=== PATIENT | male | born 1945 | race Caucasian/White ===

== ENCOUNTER 2016-06-10 12:35 | Day surgery (SDC) | payer OTHER ==
[~2016-06-10 12:35] MED LIST: ATOR40TA49 PO; HYDR-3535 PO
[2016-06-10 13:38] VITALS: BP 161/79; PULSE 74; RESP 18; TEMP 97.9; O2SAT 99
[2016-06-10 14:25] VITALS: BP 188/89; PULSE 67; RESP 20; TEMP 98.8; O2SAT 96
[2016-06-10 14:26] VITALS: BP 174/71; PULSE 66; RESP 16; TEMP 97.9; O2SAT 96
[2016-06-10] MEDS ORDERED: LIDOCAINE HCL 1% PF 30 ML VIAL ONE (14:29)
[2016-06-10] MEDS ORDERED: SODIUM BICARBONATE 8.4% INJ 50 ML ONE (14:29)
[2016-06-10 14:40] VITALS: BP 180/91; PULSE 65; RESP 20; O2SAT 96
--- NOTE | 2016-06-10 15:27 | RADRPT ---
EXAM DATE/TIME: 06/10/2016 13:34 [place] COMPARISON: No previous studies available for comparison. INDICATIONS : Right neck mass. MEDICAL HISTORY : Hypercholesterolemia. SURGICAL HISTORY : Tonsillectomy. ENCOUNTER: Initial ACUITY: 1 day PAIN SCORE: 0/10 LOCATION: Right neck ORGAN: Right neck SPECIMENS: Three core specimen(s) submitted for pathologic evaluation. DEVICE: 18 gauge Bio Pince needle Post procedure scanning reveals no hematoma or other complication. The possibility does exist that the tissue obtained will be non-diagnostic. If the sample is non-adeel gnostic a repeat biopsy or surgical biopsy may need to be performed. TECHNIQUE: 1. Ultrasound guidance for needle biopsy. 2. Needle biopsy. The risks, benefits, and alternatives to ultrasound guided needle biopsy were explained to the patien t in detail including the risk of bleeding and infection. Written and verbal informed consent was ob tained. With the patient on the ultrasound table, images were obtained. Overlying skin was prepped and drape d in the usual sterile fashion and Lidocaine was utilized as a local anesthetic. Under direct ultrasound guidance 318 gauge cores were obtained of the periparotid adenopathy. The patient tolerated the procedure well and left the ultrasound suite in stable condition. CONCLUSION: Uncomplicated ultrasound guided needle biopsy left neck adenopathy. Material was submitted for flow and pathology. Derrick Granda MD FACR on June 10, 2016 at 15:23 Board Certified Radiologist. This report was verified electronically.
--- NOTE | 2016-06-10 15:30 | RADRPT ---
EXAM DATE/TIME: 06/10/2016 13:34 [facility] COMPARISON: No previous studies available for comparison. INDICATIONS : Left neck mass. MEDICAL HISTORY : Hypercholesterolemia. SURGICAL HISTORY : Tonsillectomy. ENCOUNTER: Initial ACUITY: 1 day PAIN SCORE: 0/10 LOCATION: Left neck ORGAN: Left neck SPECIMENS: Two core specimen(s) submitted for pathologic evaluation. DEVICE: 18 gauge Bio Pince needle Post procedure scanning reveals no hematoma or other complication. The possibility does exist that the tissue obtained will be non-diagnostic. If the sample is non-adeel gnostic a repeat biopsy or surgical biopsy may need to be performed. TECHNIQUE: 1. Ultrasound guidance for needle biopsy. 2. Needle biopsy. The risks, benefits, and alternatives to ultrasound guided needle biopsy were explained to the patien t in detail including the risk of bleeding and infection. Written and verbal informed consent was ob tained. With the patient on the ultrasound table, images were obtained. Overlying skin was prepped and drape d in the usual sterile fashion and Lidocaine was utilized as a local anesthetic. Under ultrasound guidance 2,18 gauge cores were obtained of what looks like it project at the lymph n ode. Material was submitted for pathology and flow. The patient tolerated the procedure well and left the ultrasound suite in stable condition. CONCLUSION: Uncomplicated ultrasound guided needle biopsy of the right intraparotid lymph node. Derrick Granda MD FACR on June 10, 2016 at 15:26 Board Certified Radiologist. This report was verified electronically.
== END 2016-06-10 14:25 | disposition home or self-care (01) ==
LOC: HRAD 12:35 → HRIP 12:36 → HRAD 14:25
PROVIDERS: ATTEND Otolaryngology Otolaryngology/Facial Plastic Surgery
DX: R22.1 Localized swelling, mass and lump, neck (principal); E78.00 Pure hypercholesterolemia, unspecified
CPT/HCPCS: 38505; 76942; 88305; 88333

== ENCOUNTER 2017-06-10 06:23 | Day surgery (SDC) | payer MEDICARE, OTHER ==
[~2017-06-10] VITALS: Ht 177.8 cm; Wt 88.6 kg
[2017-06-10] MEDS ORDERED: IOHEXOL 350 MG/ML 100 ML BTL (for Cath Lab) OTHER ONE (06:24)
[2017-06-10] MEDS ORDERED: SODIUM CHLOR 0.9% 1000 ML INJ 1,000 ML IV SCH (06:45)
[2017-06-10 07:20] VITALS: BP 162/97; PULSE 68; RESP 18; TEMP 98.3; O2SAT 97
[2017-06-10] MEDS ORDERED: LOSA50TA PO (07:28)
[2017-06-10] MEDS ORDERED: VARE1PAK3 PO (07:28)
[2017-06-10] MEDS ORDERED: CHOL10008 PO (07:28)
[2017-06-10] MEDS ORDERED: VITATAB43 PO (07:28)
[2017-06-10] MEDS ORDERED: ATOR20TA15 PO (07:28)
[2017-06-10] MEDS ORDERED: VENTAER INH (07:28)
[2017-06-10] MEDS ORDERED: HEPARIN-NS/PF FLUSH BAG 2,000 ML IV FLUSH ONE (08:38)
[2017-06-10] MEDS ORDERED: MIDAZOLAM HCL 2 MG/2 ML VIAL ONE (08:39)
[2017-06-10] MEDS ORDERED: HEPARIN SODIUM - IV 10,000 UNITS/10 ML VIAL ONE (09:32)
[2017-06-10] MEDS ORDERED: CLOPIDOGREL 300 MG TAB ONE (10:07)
[2017-06-10] MEDS ORDERED: hydrALAZINE HCL 20 MG/ML VIAL ONE (10:07)
[2017-06-10] MEDS ORDERED: PLAV75TA29 PO (10:23)
--- NOTE | 2017-06-10 10:29 | CATHPROC ---
[employer] HIS Report Study Information Study Number Admission Scheduled Start Study Start [id number] Jun 10 2017 6:23AM 06/10/2017 Jun 10 2017 8:27AM [place] Service Cath Endovascular Study Admit Source Facility Department Other [facility] - Office Manager Executive Assistant Physician and Clinical Staff Initial Sloan Reyna Nutrient Management Specialist Edwar Ozuna,GANGA Recorder Eneida Mota,RT(R) (BS) Scrub Misael Burch,RT(R) Procedures Performed Procedure Location (Site) Vessel Name Abdominal Angiogram Abd Aorta (A3) Aorta Periph stent Iliac L. Com. (L4) Illiac Art. INSURANCE COMPLIANCE ANALYST Iliac L. Com. (L4) Illiac Art. Wire insertion Fem Art (left) Femoral Art Wire insertion Fem Art (right) Femoral Art Equipment Time Property Disposal Officer Description Size Mfg Part Number Used/Scraped INTRODUCER SET, [id number] 09:24 [employer]OOK [employer]. FR 5 Used MICROPUNCTURE *[id number] INTRODUCER SET, 09:22 [employer]OOK [employer]. FR 5 [id number] *[id number] Used MICROPUNCTURE, STIFFENED [id number] 09:24 COOK/LEIGH CHECK-AUDREY VALVE Used *[id number] 532-523 08:53 CORDIS/ LEIGH RIM SUPER TORQUE CATHETER FR 5 Used *[id number] 09:29 CORDIS/ LEIGH SHEATH, FR6 BRITE TIP 11CM FR 6 11CM [id number] Used ENDOVASCULAR CATHETER, FR5 TRAILBLAZER [id number] 09:32 90CM Used COMPANY .035 *[id number] BALLOON, ADMIRAL EXTREME 7 X [id number] 09:46 [employer] 80CM Used 80 80CM *[id number] STENT, 8 X 60 ASSURANT 09:54 [employer] 80CM [id number] Used COBALT 80CM 08:35 MALLINCKRODT SYRINGE, ANGIOMAT 150ML 150ML [id number] Used [id number] 08:35 MEDLINE INDUSTRIES PACK, CCL CUSTOM * Used *[id number] 08:35 MEDLINE PACER PEN, SKIN DUAL W/ RULER * Used *[id number] PIG ANG 145 DXTERITY 08:53 MEDTRONIC FR 5 [id number] Used CATHETER [id number] 09:34 [employer] Solutions 30 JOYA INDEFLATOR Used *[id number] 08:35 [employer] WIRE, EXCHANGE 260CM 3MMJ 260CM Used *[id number] 08:35 NAMIC MANIFOLD, 4 PORT * Used *[id number] 08:35 NAMIC TUBING, HIGH PRESSURE 48" 48" Used *1698518 [id number] 08:53 NAMIC TUBING, HIGH PRESSURE 48" 48" Used *[id number] 08:35 NYCOMED OMNIPAQUE, 300 MG, 150ML 150ML [id number] Used 08:52 NYCOMED OMNIPAQUE, 300 MG, 50ML 50ML [id number] Used [id number] 08:35 [place] MEDICAL BLANKET,WARM AIR CCL * Used *[id number] [id number] 08:35 TERUMO MEDICAL SHEATH, FR5 TERUMO (10CM) FR 5 Used *[id number] 09:23 TERUMO MEDICAL SHEATH, FR5 TERUMO (10CM) FR 5 Used *[id number] WIRE, ANGLE GLIDE STIFF .035 [id number] 08:35 TERUMO MEDICAL/LEIGH 260CM Used 260CM *[id number] WIRE, ANGLED GLIDE .035 [id number] 09:45 TERUMO MEDICAL/LEIGH 260CM Used 260CM *[id number] Equipment Model, Serial, Lot Number and Expiration Data Description Model Number Serial Number Lot Number Expiration Date CATHETER, FR5 TRAILBLAZER .035 [id number] 04-27-2020 CHECK-AUDREY VALVE [id number] 12-26-2019 INTRODUCER SET, [id number] 04-28-2020 MICROPUNCTURE, STIFFENED PIG ANG 145 DXTERITY CATHETER [id number] 02-04-2019 STENT, 8 X 60 ASSURANT COBALT [id number] 06-25-2017 80CM History: Allergies Allergy Reaction No Known Allergies Labs Hgb (g/dl) Hct (%) WBC (l/cumm) Platelets (thousands) 11.60-17.00 35.00-51.00 4.00-11.00 150.00-450.00 15.9 47 10.6 200 Glucose (mg/dl) BUN (mg/dl) Creatinine (mg/dl) BUN:Creatinine (1:x) 74.00-106.00 7.00-18.00 0.50-1.30 10.00-20.00 101 20 1.1 18.2 Na (meq/l) K (meq/l) 136.00-145.00 3.50-5.10 142 4.5 INR (PTT:PT) 0.90-1.10 1 CPK-MB (ng/ML) 0.50-3.60 Not Drawn Medication Medication Total Dose (Bolus/Oral) Medication Total Dosage/Unit 1% XYLOCAINE 20 mL FENTANYL 100 mcg HEPARIN 5000 units HYDRALAZINE 20 mg PLAVIX 600 mg VERSED 2 mg Medications (Bolus/Oral) Medication Time Given Dosage/Unit Administered By Reason FENTANYL 06/10/2017 9:08:40 AM 50 mcg Edwar Ozuna 50 mcg FENTANYL given in lab by Edwar Ozuna RN in Left Antecubital via Peripheral IV. Ordered by Sloan Leon. VERSED 06/10/2017 9:08:46 AM 2 mg Edwar Ozuna 2 mg VERSED given in lab by Edwar Ozuna RN in Left Antecubital via Peripheral IV. Ordered by Sloan Daily. 1% XYLOCAINE 06/10/2017 9:13:14 AM 10 mL Sloan Leon 10 mL 1% XYLOCAINE given in lab by Sloan Leon in Right Groin via Subcutaneous. Ordered by Sloan Leon. 1% XYLOCAINE 06/10/2017 9:22:38 AM 10 mL Sloan Leon 10 mL 1% XYLOCAINE given in lab by Sloan Leon in Left Groin via Subcutaneous. Ordered by Margot Leon. HEPARIN 06/10/2017 9:33:47 AM 5000 units Edwar Ozuna 5000 units HEPARIN given in lab by Edwar Ozuna RN in Left Antecubital via Peripheral IV. Ordered by Sloan Leon. HYDRALAZINE 06/10/2017 10:08:21 AM 20 mg Edwar Ozuna 20 mg HYDRALAZINE given in lab by Edwar Ozuna RN in Left Antecubital via Peripheral IV. Ordered b Sloan Schmid. FENTANYL 06/10/2017 10:16:44 AM 50 mcg Edwar Ozuna 50 mcg FENTANYL given in lab by Edwar Ozuna RN in Left Antecubital via Peripheral IV. Ordered by Sloan Leon. PLAVIX 06/10/2017 10:16:53 AM 600 mg Edwar Ozuna 600 mg PLAVIX given in lab by Edwar Ozuna, RN via Oral. Ordered by Sloan Leon. Medication (Drip) Medication Time Given Dosage/Unit Concentration/Unit Diluent (ml) Solutio n IV Solutions 06/10/2017 8:31:54 AM 0 mL (IV) 500 NaCl .9 IV Solutions given in lab by Edwar Ozuna, RN in Left Antecubital via Peripheral IV. Pump/Drip Flow = 30 ml/hr using NaCl .9. Initial Case Assessment Cardiovascular HR NIBP 69 176/93 Edema Present Skin color Skin None Normal Warm Dry Circulatory - Right Pulses Femoral 1 Scale (0,1,2,3,4,d) Circulatory - Left Pulses Femoral 1 Scale (0,1,2,3,4,d) Circulatory - Lower Extremities Color Lower Right Color Lower Left Normal Normal Neurological State Oriented to time-place- Alert Moves all extremities person Respiration - General Respiration Rate SpO2 (%) (B/min) 16 99 Final Case Assessment Cardiovascular HR Rhythm NIBP 88 sr 160/84 Edema Present Skin color Skin None Normal Warm Dry Circulatory - Right Pulses Femoral 1 Scale (0,1,2,3,4,d) Circulatory - Left Pulses Femoral 1 Scale (0,1,2,3,4,d) Circulatory - Lower Extremities Color Lower Right Color Lower Left Normal Normal Neurological State Oriented to time-place- Alert Moves all extremities person Respiration - General Respiration Rate SpO2 (%) O2 (lpm) (B/min) 25 99 2 Chronological Log Time Study Chronological Log 8:26:45 Patient arrived via Bed. 8:26:47 Patient Name, D.O.B, / Armband Verified By R.N. 8:26:48 Consent signed by the physician and the patient and verified by the Office Manager Executive Assistant staff. 8:31:41 Pre-op and post- op instructions given; patient acknowledges understanding of instructions. 8:31:42 Verbal Stimulation=2 Physical Stimulation=2 Airway=2 Respiration=2 TOTAL=8. (0=absent, 1=li mited, 2=present) 8:31:44 Presedation assessment performed by Office Manager Executive Assistant RN. 8:31:48 Patient has been NPO for More than 6Hrs. 8:31:50 Patient Warmer Placed on the Table. 8:31:52 Odalys Prominences Protected 8:31:53 A # 20 IV was noted in the Antecubital (left). Grade = 0 IV Solutions given in lab by Edwar Ozuna RN in Left Antecubital via Peripheral IV. Pump/Dri p Flow = 30 ml/hr using 8:31:54 NaCl .9. 8:31:55 History and physical on the chart or being dictated. Assessment: Initial Case, HR=69 BPM, RSXY=026/93 mmhg, Edema=None, Color=Normal, Skin = Warm, Dr y Right Pulses: Femoral=1 Left Pulses: Stefano Ped=1, Post Tib=d, Femoral=1 8:31:56 Lower Right Extremities: Color=Normal Lower Left Extremities: Color=Normal Neurological: State=Alert, Ox3, [place] Respiration: Resp=16 B/min, SpO2=99 % Vitals capture started with the following parameters, Patient=Adult, Interval=5 min, Initial Pre djdfs=176 mmHg, 8:35:45 Deflation Rate=5 mmHg, Cuff placed on Right Ankle 8:36:58 HR=65 bpm, CYTW=306/93 mmhg, SpO2=98.0 %, Resp=13 B/min, Pain=0, Nika=10, Johnston=2 8:41:26 HR=69 bpm, PHNF=031/89 mmhg, SpO2=98.0 %, Resp=18 B/min 8:45:05 Bilateral groins prepped with 2% chlorhexidine, and draped after a 3 minute waiting time. 8:46:27 CUMK=304/90 mmhg, SpO2=99.0 %, Pain=0, Nika=10, Johnston=2 8:47:50 MD paged 8:50:20 Pressure channel 1 zeroed. 8:51:30 HR=70 bpm, BZKC=654/85 mmhg, PkF7=004.0 %, Resp=23 B/min, Pain=0, Nika=10, Johnston=2 8:55:32 MD responded 8:56:29 HR=71 bpm, KYQB=980/89 mmhg, SpO2=99.0 %, Resp=23 B/min, Pain=0, Nika=10, Johnston=2 9:01:30 HR=70 bpm, FJGB=478/86 mmhg, SpO2=99.0 %, Resp=20 B/min, Pain=0, Nika=10, Johnston=2 9:06:31 HR=68 bpm, AKEO=201/74 mmhg, SpO2=96.0 %, Resp=23 B/min, Pain=0, Nika=10, Johnston=2 9:07:41 MD arrived. 9:08:39 Reference ECG taken 9:08:40 50 mcg FENTANYL given in lab by Edwar Ozuna, RN in Left Antecubital via Peripheral IV. Or dered by Sloan Leon. 9:08:46 2 mg VERSED given in lab by Edwar Ozuna, RN in Left Antecubital via Peripheral IV. Ordere d by Sloan Leon. 9:11:24 HR=68 bpm, NDJD=613/78 mmhg, SpO2=96.0 %, Resp=20 B/min, Pain=0, Nika=9, Johnston=2 Time Out. Correct patient, correct procedure, correct physician, power injector loaded loaded wi th contrast with surgical 9:12:54 team present. Time Out Concurred by MD and individual staff in procedure. 9:12:57 Case Start 9:13:14 10 mL 1% XYLOCAINE given in lab by Sloan Leon in Right Groin via Subcutaneous. Ordered b y Sloan Leon. 9:17:00 HR=72 bpm, VPHI=132/87 mmhg, SpO2=97.0 %, Resp=16 B/min, Pain=0, Nika=9, Johnston=2 9:17:50 Access site was Right Femoral Artery. 9:18:06 A SHEATH, FR5 TERUMO (10CM) FR 5 was advanced into the Fem Art (right) using the Percutaneou s technique. A PIG ANG 145 DXTERITY CATHETER FR 5 was advanced over a wire. OMNIPAQUE, 300 MG, 150ML 150ML wa s used 9:19:26 for injections. 9:21:27 Through a PIG ANG 145 DXTERITY CATHETER FR 5, The Abdominal Aorta was injected with 12 cc's of contrast. 9:21:28 HR=68 bpm, PEPC=008/81 mmhg, SpO2=96.0 %, Resp=26 B/min, Pain=0, Nika=9, Johnston=2 9:22:38 10 mL 1% XYLOCAINE given in lab by Sloan Leon in Left Groin via Subcutaneous. Ordered by Sloan Leon. 9:24:13 Access site was Left Femoral Artery. A INTRODUCER SET, MICROPUNCTURE, STIFFENED FR 5 was advanced into the Fem Art (left) using the P ercutaneous 9:24:22 technique. 9:26:04 Through a micropuncture, The Iliac L. Com. (L4) was injected with 10 cc's of contrast. 9:27:06 Through a catheter, The Femoral Run-off was injected with manual injections, continuing down the extremity. 9:27:08 HR=71 bpm, KIWK=547/82 mmhg, SpO2=97.0 %, Resp=25 B/min, Pain=0, Nika=9, Johnston=2 A SHEATH, FR6 BRITE TIP 11CM FR 6 11CM was exchanged in the Fem Art (right). This was necessary in order to 9:29:14 accomodate a larger catheter. 9:31:31 HR=71 bpm, WEGI=278/82 mmhg, SpO2=97.0 %, Resp=25 B/min, Pain=0, Nika=9, Johnston=2 A PIG ANG 145 DXTERITY CATHETER FR 5 was advanced over a wire. OMNIPAQUE, 300 MG, 150ML 150ML w as used 9:32:29 for injections. 9:33:47 5000 units HEPARIN given in lab by Edwar Ozuna RN in Left Antecubital via Peripheral IV. Ordered by Sloan Leon. 9:36:32 HR=68 bpm, DJSB=196/76 mmhg, SpO2=97.0 %, Resp=23 B/min, Pain=0, Nika=9, Johnston=2 Recorded Pressure: Ao, HR=73, Condition=Condition 1 9:37:11 (Aorta) Ao 155/71/108 9:38:14 Through a RIM SUPER TORQUE CATHETER FR 5, The Iliac L. Com. (L4) was injected with 10 cc's o f contrast. A CATHETER, FR5 TRAILBLAZER .035 90CM was advanced over a wire. OMNIPAQUE, 300 MG, 150ML 150ML was used 9:40:09 for injections. 9:41:05 A WIRE, ANGLE GLIDE STIFF .035 260CM 260CM was inserted via Fem Art (left). 9:41:29 HR=72 bpm, AQWA=981/84 mmhg, SpO2=98.0 %, Resp=26 B/min, Pain=0, Nika=9, Johnston=2 9:46:08 Activated Clotting Time Drawn 9:46:56 HR=69 bpm, TPGR=942/88 mmhg, SpO2=98.0 %, Resp=24 B/min, Pain=0, Nika=9, Johnston=2 A BALLOON, ADMIRAL EXTREME 7 X 80 80CM 80CM was inserted over WIRE, ANGLE GLIDE STIFF .035 260C M 260CM 9:47:20 via the Fem Art (left). 9:48:20 In the Iliac L. Com. (L4) a BALLOON, ADMIRAL EXTREME 7 X 80 80CM 80CM was inflated to 6 atms for 30 seconds. 9:49:53 Balloon Removed. 9:50:49 ACT (Normal Range 90-180) = 233 9:51:31 HR=71 bpm, KSTR=102/90 mmhg, SpO2=98.0 %, Resp=25 B/min, Pain=0, Nika=10, Johnston=2 A STENT, 8 X 60 ASSURANT COBALT 80CM 80CM was advanced over a WIRE, ANGLE GLIDE STIFF .035 260C M 9:54:25 260CM. 9:56:34 HR=69 bpm, MWKK=710/89 mmhg, SpO2=98.0 %, Resp=23 B/min, Pain=0, Nika=9, Johnston=2 A STENT, 8 X 60 ASSURANT COBALT 80CM 80CM was deployed at 8 atmospheres for 14 seconds in the I liac L. Com. 9:57:57 (L4). 9:58:57 Delivery device removed A CATHETER, FR5 TRAILBLAZER .035 90CM was advanced over a wire. OMNIPAQUE, 300 MG, 150ML 150ML was used 10:00:29 for injections. 10:01:20 Through a PIG ANG 145 DXTERITY CATHETER FR 5, The Abdominal Aorta was injected with 10 cc's of contrast. 10:01:31 HR=75 bpm, DQZJ=928/101 mmhg, SpO2=99.0 %, Resp=23 B/min, Pain=0, Nika=9, Johnston=2 10:03:53 [place] Wire removed from left fem artery 10:05:38 Through a PIG ANG 145 DXTERITY CATHETER FR 5, The Abdominal Aorta was injected with 10 cc's of contrast. 10:06:17 A WIRE, ANGLE GLIDE STIFF .035 260CM 260CM was inserted via Fem Art (right). 10:06:36 HR=77 bpm, EXAO=420/92 mmhg, SpO2=98.0 %, Resp=22 B/min, Pain=0, Nika=9, Johnston=2 10:06:48 Catheters were removed A CATHETER, FR5 TRAILBLAZER .035 90CM was advanced over a wire. OMNIPAQUE, 300 MG, 150ML 150ML was used 10:07:11 for injections. Recorded Pressure: RIlcA, HR=77, Condition=Condition 1 10:08:17 (Right Iliac Artery) RIlcA 177/74/114 10:08:21 20 mg HYDRALAZINE given in lab by Edwar Ozuna, GANGA in Left Antecubital via Peripheral IV. Ordered by Sloan Leon. 10:10:25 Through a sheath, The Femoral Run-off was manually injected with multiple injections down t he extremity 10:11:37 HR=76 bpm, DURS=439/84 mmhg, SpO2=99.0 %, Resp=24 B/min, Pain=0, Nika=9, Johnston=2 10:12:58 Catheter(s) removed without difficulty 10:13:15 Case End 10:16:34 HR=81 bpm, LPBN=836/84 mmhg, DtM3=451.0 %, Resp=10 B/min, Pain=0, Nika=10, Johnston=2 10:16:44 50 mcg FENTANYL given in lab by Edwar Ozuna, GANGA in Left Antecubital via Peripheral IV. O rdered by Sloan Leon. 10:16:53 600 mg PLAVIX given in lab by Edwar Ozuna, GANGA via Oral. Ordered by Sloan Leon. Assessment: Final Case, HR=88 BPM, Rhythm=sr, HWOV=366/84 mmhg, Edema=None, Color=Normal, Skin = Warm, Dry Right Pulses: Femoral=1 Left Pulses: Stefano Ped=1, Post Tib=d, Femoral=1 10:19:12 Lower Right Extremities: Color=Normal Lower Left Extremities: Color=Normal Neurological: State=Alert, Ox3, [place] Respiration: Resp=25 B/min, SpO2=99 %, O2=2 lpm 10:20:29 Sheath(s) left in place, will be removed in Holding Area 10:20:32 In the Fem Art (left) the SHEATH, FR6 BRITE TIP 11CM FR 6 11CM was sutured in place by Sloan Mahan. 10:20:44 In the Fem Art (right) the SHEATH, FR5 TERUMO (10CM) FR [address] by Margot Leon. 10:21:02 Sterile dressing applied to site 10:21:03 No case complications noted. 10:21:04 Cine recording checked. 10:21:06 Bedside Report will be given. 10:21:12 Implantable Device card placed in patient's chart. 10:22:16 HR=92 bpm, ZXDH=987/93 mmhg, SpO2=99.0 %, Resp=22 B/min, Pain=0, Nika=10, Johnston=2 10:26:07 Vitals capture stopped. 10:29:30 Patient moved to [facility] End Study - Contrast Media Used In Study Contrast Total Opened (mL) Total Used (mL) Total Wasted (mL) Omnipaque 200 200 0 End Study - Maximum Contrast Load Max Contrast Load (mL) 402.7 End Study - Radiation Exposure Fluoro Time (minutes) 12.7 End Study - Patient Disposition Complications Transferred To Interventional Outcome No Office Manager Executive Assistant Holding successful
[2017-06-10] MEDS ORDERED: MISC INFORMATION XX ONE (10:30)
[2017-06-10] MEDS ORDERED: ATROPINE SULFATE 1 MG/ML VIAL IV PUSH PRN (10:30)
[2017-06-10] MEDS ORDERED: LORazepam 2 MG/ML VIAL IV PUSH PRN (10:30)
[2017-06-10] MEDS ORDERED: ONDANSETRON HCL 4 MG/2 ML VIAL IV PUSH PRN (10:30)
[2017-06-10] MEDS ORDERED: BACITRACIN OINT 0.9 GM PKT TOP ONE (10:30)
[2017-06-10] MEDS ORDERED: SODIUM CHLOR 0.9% 250 ML INJ 250 ML IV PRN (10:30)
[2017-06-10] MEDS ORDERED: LIDOCAINE HCL 1% 30 ML VIAL INFIL PRN (10:30)
[2017-06-10] MEDS ORDERED: METOCLOPRAMIDE HCL 10 MG/2 ML VIAL IV PUSH PRN (10:30)
--- NOTE | 2017-06-10 11:09 | MA ---
cc: Sloan Leon MD 06/10/2017 Peripheral angiography with intervention. PROCEDURE PERFORMED: 1. Fluoroscopy with interpretation. 2. Descending aortography. 3. Bilateral lower extremity peripheral angiography with first, second, third order visualization and interpretation. 4. Endovascular stenting with balloon expandable stent of the chronically occluded left common iliac artery. METHOD: The risks, benefits, alternatives discussed with the patient. The patient understood, consented to the procedure. The patient was brought into the catheterization lab, placed on the catheterization table. The right groin was prepped and draped in sterile fashion. Right groin was anesthetized with 2% lidocaine. Right common femoral artery was cannulated, and a 5-Burkinan 11 cm sheath was placed without difficulty. DESCENDING AORTOGRAPHY: Descending aortography was performed in anterior and posterior views using a 24 mL contrast injection with good opacification. Descending aortography revealed mild to moderate infrarenal descending aortic atherosclerosis and calcification. Bilateral renal arteries widely patent. PERIPHERAL ANGIOGRAPHY: 1. Right common iliac artery has a 50% stenosis with a 20 to 30 mm translesional gradient. Right internal and external common iliac arteries widely patent. Right common femoral, profunda, superficial femoral artery and popliteal arteries are widely patent. There is mild infrapopliteal disease in the right, but very slow flow and more moderate disease in small vessel distally. Anterior tibial, posterior tibial and peroneal vessels are patent. 2. Left common iliac artery is occluded. Left internal and external iliac arteries have mild luminal irregularities. Left common femoral, profunda, superficial femoral, popliteal arteries widely patent. Left anterior tibial, posterior tibial and peroneal vessels are patent with small vessel distal moderate disease. PERCUTANEOUS INTERVENTION: Micropuncture sheath was accessed in the left common femoral artery, and a 6-Burkinan bright tip 11 cm sheath was placed without difficulty. A 90 cm Trailblazer catheter was advanced behind a stiff angle glidewire through the chronic occlusion into the descending aorta. Digital subtraction angiography did confirm that we were in true lumen of the aorta. The stiff angle 300 cm glidewire was advanced through thoracic aorta. A 7.0 x 60 mm Medtronic balloon was then deployed in the left common iliac artery. Repeat angiography showed now AMANDA 3 flow, still residual stenosis. An 8.0 x 60 mm Medtronic balloon expandable stent was then deployed in the left common iliac artery, right at the level of the bifurcation, but not crossing into the aorta. The stent extended down just to the bifurcation of the internal and external iliac arteries. Repeat angiography showed no residual stenosis AMANDA 3 flow. There is some eccentric calcium along the distal aorta, but non flow limiting. Heparin was administered throughout the entire procedure to maintain appropriate anticoagulation. CONCLUSIONS: 1. Chronically occluded left common iliac artery. 2. Small vessel distal infrapopliteal disease bilaterally. 3. Six vessel endovascular stenting with balloon expandable stent in the common left iliac artery. PLAN: The patient will be monitored closely for any postprocedural complications. Hopefully, we will be able to discharge him later today. Fully anticipate he will have good symptomatic relief in the left lower extremity. There is borderline stenosis in the right common iliac artery with tortuosity. He was not complaining of right lower extremity claudication. Now that his left leg is revascularized, he may be limited by his right lower extremity, but we will see how he does clinically. If we need to, we can potentially bring him back for planned intervention, but if he is not symptomatic, we will manage him medically. Sloan Leon MD AL/DL , 10:28 AM , 11:09 AM MTDBrennen
[2017-06-10] MEDS ORDERED: oxyCODONE/ACETAMINOPHEN 5 MG/325 MG TAB PO PRN (13:30)
== END 2017-06-10 18:05 | disposition home or self-care (01) ==
LOC: HDIC 06:23 → HCAT 06:23
PROVIDERS: ATTEND Internal Medicine
DX: I70.212 Atherosclerosis of native arteries of extremities with intermittent claudication, left leg (principal); I74.5 Embolism and thrombosis of iliac artery; I10 Essential (primary) hypertension; J44.9 Chronic obstructive pulmonary disease, unspecified; E78.5 Hyperlipidemia, unspecified; F17.210 Nicotine dependence, cigarettes, uncomplicated
CPT/HCPCS: 36200; 37221; 75625; 75716; 85002; 99152; 99153; C1725; C1751; C1769; C1876; C1893; J0360; J1644; J2250; J3010; 85347; Q9967